=== PATIENT | male | born 1975 | race African-American/Black ===

== ENCOUNTER 2024-07-10 15:01 | Emergency (ER) | payer SELFPAY ==
[~2024-07-10] VITALS: Ht 175.3 cm; Wt 82.0 kg
[2024-07-10 15:03] VITALS: BP 125/72; PULSE 108; RESP 17; TEMP 36.8; O2SAT 98
== END 2024-07-10 19:56 | disposition home or self-care (01) ==
LOC: ER 15:01
DX: M54.9 Dorsalgia, unspecified (principal); Z59.00 Homelessness unspecified
CPT/HCPCS: 99283